=== PATIENT | male | born 1995 | race Caucasian/White ===

== ENCOUNTER 2018-07-24 10:30 | Emergency (ER) | payer MEDICAID ==
[~2018-07-24] VITALS: Ht 172.7 cm; Wt 65.9 kg
[2018-07-24 10:31] VITALS: BP 137/85
[2018-07-24] MEDS ORDERED: TETanus/Pertussis (Acell)/Diphther VAC/PF (Tdap-Adult) 0.5ml syringe IM ONE (10:45)
[2018-07-24] MEDS ORDERED: LIDOcaine 1% w/epiNEPHrine 1:200,000 30ml vial IM ONE (10:45)
== END 2018-07-24 11:43 | disposition home or self-care (01) ==
LOC: ER 10:31
DX: S01.01XA Laceration without foreign body of scalp, initial encounter (principal); F12.90 Cannabis use, unspecified, uncomplicated; F15.90 Other stimulant use, unspecified, uncomplicated; W20.8XXA Other cause of strike by thrown, projected or falling object, initial encounter; Y93.89 Activity, other specified; Y92.89 Other specified places as the place of occurrence of the external cause; Y99.8 Other external cause status
CPT/HCPCS: 12002; 90471; 90715; 99283; J3490

== ENCOUNTER 2018-08-05 13:42 | Emergency (ER) | payer MEDICAID ==
[~2018-08-05] VITALS: Ht 170.2 cm; Wt 66.4 kg
[2018-08-05 13:49] VITALS: BP 112/61
== END 2018-08-05 14:58 | disposition home or self-care (01) ==
LOC: ER 13:43
DX: S01.01XD Laceration without foreign body of scalp, subsequent encounter (principal); F12.90 Cannabis use, unspecified, uncomplicated; F15.90 Other stimulant use, unspecified, uncomplicated; Z48.02 Encounter for removal of sutures; W22.8XXD Striking against or struck by other objects, subsequent encounter
CPT/HCPCS: 99281

== ENCOUNTER 2018-08-31 17:36 | Emergency (ER) | payer MEDICAID, OTHER ==
[~2018-08-31] VITALS: Ht 170.2 cm; Wt 65.9 kg
[2018-08-31 17:58] VITALS: BP 115/75
[2018-08-31] MEDS ORDERED: ACET-2615 PO (18:25)
[2018-08-31] MEDS ORDERED: acetaminophen 325mg tablet PO ONE (18:25)
[2018-08-31] MEDS ORDERED: IBUP-1986 PO (18:25)
[2018-08-31] MEDS ORDERED: ketorolac trometh inj. 60 MG/2 ML VIAL IM ONE (18:25)
== END 2018-08-31 18:50 | disposition home or self-care (01) ==
LOC: ER 17:37
DX: M25.562 Pain in left knee (principal); F12.90 Cannabis use, unspecified, uncomplicated; F15.90 Other stimulant use, unspecified, uncomplicated; V19.88XA Pedal cyclist (driver) (passenger) injured in other specified transport accidents, initial encounter; Y93.55 Activity, bike riding; Y92.413 State road as the place of occurrence of the external cause; Y99.9 Unspecified external cause status
CPT/HCPCS: 73564; 96372; 99283; J1885

== ENCOUNTER 2018-12-29 22:13 | Emergency (ER) | payer MEDICAID, OTHER ==
[~2018-12-29] VITALS: Ht 172.7 cm; Wt 61.4 kg
[~2018-12-29 22:13] MED LIST: IBUP-1986 PO
--- NOTE | 2018-12-29 22:15 | NUR ---
PT HOOKED UP TO COMMUNICATIONS PROFESSIONAL 2 BI LAT 18G IV'S 2L FLUID BOLUS RUNNING. EKG COMPLETED 2 MG ATIVAN ADMINISTERED DOCTOR EVALUATION
[2018-12-29] MEDS ORDERED: LORazepam 2 mg/ml vial ONE (22:20)
--- NOTE | 2018-12-29 22:20 | NUR ---
Another male dropped the patient off in front of registration, when I got to the lobby the patient started to collapse in my arms. The male that was with him said "you got him?" and left the lobby. Gilbert, from phlebotomy was with me and he was able to assist holding him while I got a wheelchair. Pt taken to room 4. The patient is pale and says he cannot breath and that he did methamphetamine and he smells strongly of marijuana. Multiple staff/RNs at the bedside upon arrival.
[2018-12-29] MEDS ORDERED: normal saline 1000ML IV soln IVB ONE (22:30)
[2018-12-29] MEDS ORDERED: metoprolol tartrate 1mg/ml inj IV ONE ×2 (22:30)
--- NOTE | 2018-12-29 22:30 | NUR ---
PT WAS ABLE TO STATE HE WASN'T AWARE OF MEDICATION ALLERGIES
[2018-12-29 22:37] LABS: BASOPHILS # (AUTO) 0.2 X10'3 (0-0.2); BASOPHILS % (AUTO) 1.1 % (0-1); EOSINOPHILS # (AUTO) 0.4 X10'3 (0-0.9); EOSINOPHILS % (AUTO) 3.2 % (0-6); HEMATOCRIT 47.1 % (42.0-52.0); HEMOGLOBIN 16.2 g/dl (14.0-17.9); LYMPHOCYTES % (AUTO) 44.1 % (21-51); MEAN CORPUSCULAR HEMOGLOBIN 31.2 PG (27.0-31.0); MEAN CORPUSCULAR HGB CONC 34.4 g/dL (33.0-36.5); MEAN CORPUSCULAR VOLUME 90.8 FL (78-98); MONOCYTES % (AUTO) 7.4 % (2-12); NEUTROPHILS % (AUTO) 44.2 % (42-75); PLATELET COUNT 234 X10'3 (140-440); RED BLOOD COUNT 5.19 X10'6 (4.70-6.10); WHITE BLOOD COUNT 13.7 X10'3 (4.5-11.0)
[2018-12-29 22:46] LABS: ALANINE AMINOTRANSFERASE 35 U/L (12-78); ALBUMIN 4.6 G/DL (3.4-5.0); ALBUMIN/GLOBULIN RATIO 1.2 (1.1-1.5); ALKALINE PHOSPHATASE 81 IU/L (46-116); ANION GAP 12 (8-16); ASPARTATE AMINO TRANSFERASE 21 U/L (10-37); BILIRUBIN,TOTAL 2.9 MG/DL (0.1-1.0); BLOOD UREA NITROGEN 17 MG/DL (7-18); BUN/CREATININE RATIO 16.2 (5.4-32.0); CALCIUM 9.5 MG/DL (8.5-10.1); CHLORIDE 103 MMOL/L (99-107); CREATININE 1.05 MG/DL (0.60-1.10); GLUCOSE 127 MG/DL (70-104); POTASSIUM 4.3 MMOL/L (3.5-5.1); SODIUM 140 MMOL/L (135-145); TOTAL CARBON DIOXIDE 25.3 MMOL/L (24-32); TOTAL PROTEIN 8.4 G/DL (6.4-8.2); eGFR 88 ML/MIN
[2018-12-29 22:49] LABS: ETHANOL < 0.010 GM/DL (0.0-0.010)
[2018-12-30 00:10] LABS: URINE AMPHETAMINE SCREEN POSITIVE (Neg); URINE BARBITUATE SCREEN NEGATIVE (Neg); URINE BENZODIAZEPINES SCREEN NEGATIVE (Neg); URINE CANNABINOID SCREEN POSITIVE (Neg); URINE COCAINE SCREEN NEGATIVE (Neg); URINE METHADONE SCREEN NEGATIVE (Neg); URINE OPIATE SCREEN NEGATIVE (Neg); URINE PHENCYCLIDINE SCREEN NEGATIVE (Neg)
--- NOTE | 2018-12-30 02:09 | NUR ---
Patient is resting comfortably in bed sleeping. He is sleeping but easily arousable. The patient gives his mother's phone number who does not answer. A voice message was left for her to call back. Patient has a phone but states, "No one will come get me right now." and refuses to call anyone else.
[2018-12-30 02:40] VITALS: BP 121/77
== END 2018-12-30 03:03 | disposition home or self-care (01) ==
LOC: ER 22:13
DX: F15.10 Other stimulant abuse, uncomplicated (principal); F12.90 Cannabis use, unspecified, uncomplicated; R41.82 Altered mental status, unspecified
CPT/HCPCS: 36415; 80053; 80305; 80320; 85025; 93005; 96361; 96374; 96375; 99284; J2060; J7030; J3490

== ENCOUNTER 2019-11-09 18:10 | Emergency (ER) | payer SELFPAY ==
[~2019-11-09] VITALS: Ht 172.7 cm; Wt 63.6 kg
[2019-11-09 18:26] VITALS: BP 138/78
== END 2019-11-09 18:38 | disposition home or self-care (01) ==
LOC: ER 18:11
DX: E86.0 Dehydration (principal); R42 Dizziness and giddiness; R11.0 Nausea; F12.90 Cannabis use, unspecified, uncomplicated; F15.90 Other stimulant use, unspecified, uncomplicated; Z72.89 Other problems related to lifestyle; Z79.899 Other long term (current) drug therapy
CPT/HCPCS: 99281

== ENCOUNTER 2019-12-18 09:05 | Emergency (ER) | payer MEDICAID ==
[~2019-12-18] VITALS: Ht 170.2 cm; Wt 62.0 kg
[2019-12-18] MEDS ORDERED: mupirocin 2% ointment 22GM TP ONE (10:05)
[2019-12-18] MEDS ORDERED: TETanus/Pertussis (Acell)/Diphther VAC/PF (Tdap-Adult) 0.5ml syringe IMVAC ONE (10:05)
[2019-12-18 10:58] VITALS: BP 116/74
== END 2019-12-18 11:01 | disposition home or self-care (01) ==
LOC: ER 09:05
DX: S66.911A Strain of unspecified muscle, fascia and tendon at wrist and hand level, right hand, initial encounter (principal); T14.8XXA Other injury of unspecified body region, initial encounter; F17.200 Nicotine dependence, unspecified, uncomplicated; F12.90 Cannabis use, unspecified, uncomplicated; F15.90 Other stimulant use, unspecified, uncomplicated; Z79.899 Other long term (current) drug therapy; V89.2XXA Person injured in unspecified motor-vehicle accident, traffic, initial encounter; Y93.89 Activity, other specified; Y92.89 Other specified places as the place of occurrence of the external cause; Y99.8 Other external cause status
CPT/HCPCS: 73110; 73130; 90471; 90715; 99284

== ENCOUNTER 2020-08-03 14:03 | Emergency (ER) | payer SELFPAY ==
[~2020-08-03] VITALS: Ht 172.7 cm; Wt 64.5 kg
[2020-08-03] MEDS ORDERED: CefTRIAXone 250MG IM Kit w/LIDOcaine IM STA (14:58)
[2020-08-03] MEDS ORDERED: PENICILLIN G BENZATHINE 2,400,000 UNIT/4 ML SYRINGE IM STA (14:58)
[2020-08-03] MEDS ORDERED: azithromycin 250mg tablet PO ONE (15:00)
[2020-08-03] MEDS ORDERED: metroNIDAZOLE 500mg tablet PO ONE (15:00)
--- NOTE | 2020-08-03 15:15 | NUR ---
PATIENT REFUSED PENILE SWAB, PROVIDER AWARE.
[2020-08-03 15:33] VITALS: BP 129/80
== END 2020-08-03 15:27 | disposition home or self-care (01) ==
LOC: ER 14:04
DX: A64 Unspecified sexually transmitted disease (principal); F12.90 Cannabis use, unspecified, uncomplicated; F15.90 Other stimulant use, unspecified, uncomplicated; Z72.89 Other problems related to lifestyle; Z79.899 Other long term (current) drug therapy
CPT/HCPCS: 36415; 86592; 87491; 87591; 96372; 99284; J0561; J0696; J3490

== ENCOUNTER 2020-08-09 01:57 | Emergency (ER) | payer SELFPAY ==
[~2020-08-09] VITALS: Ht 170.2 cm; Wt 145.0 kg
[2020-08-09 02:06] VITALS: BP 128/84
[2020-08-09] MEDS ORDERED: TRIA15CR61 TOP (02:48)
[2020-08-09] MEDS ORDERED: BUTE12CR TOP (02:48)
== END 2020-08-09 02:57 | disposition home or self-care (01) ==
LOC: ER 01:59
DX: R21 Rash and other nonspecific skin eruption (principal); F12.90 Cannabis use, unspecified, uncomplicated; F15.90 Other stimulant use, unspecified, uncomplicated; Z72.89 Other problems related to lifestyle; Z79.899 Other long term (current) drug therapy
CPT/HCPCS: 99283